=== PATIENT | male | born 1965 | race Caucasian/White ===

== ENCOUNTER 2020-05-01 15:00 | Outpatient (RCR) | payer OTHER, SELFPAY ==
[2020-05-01] MEDS: COVID-19 VACC, MRNA(PFIZER)/PF 30 MCG/0.3 ML SYRINGE IM (13:36)
[2020-05-22] MEDS: COVID-19 VACC, MRNA(PFIZER)/PF 30 MCG/0.3 ML SYRINGE IM (13:39)
== END 2020-05-01 23:59 ==
LOC: IMMUN 15:00
PROVIDERS: PCP Student in an Organized Health Care Education/Training Program; Visit Provider Family Medicine
DX: Z23 Encounter for immunization (principal)
CPT/HCPCS: 0001A; 0002A; 91300

== ENCOUNTER → 2023-11-07 | Outpatient (CLI) | payer OTHER, SELFPAY | END | disposition home or self-care (01) | LOC: LABSPEC 11:51 | PROVIDERS: PCP Student in an Organized Health Care Education/Training Program; Referring Provider Student in an Organized Health Care Education/Training Program; Visit Provider Student in an Organized Health Care Education/Training Program | DX: Z12.5 Encounter for screening for malignant neoplasm of prostate (principal) ==